=== PATIENT | male | born 1970 | race Asian ===

== ENCOUNTER → 2019-12-30 | Outpatient (CLI) | payer BC ==
[2019-12-30 09:37] LABS: BASOPHILS % 0.7 % (0.0-2.0); EOSINOPHILS % 2.1 % (0.0-5.0); HEMATOCRIT. 44.9 % (42.0-52.0); HEMOGLOBIN. 15.5 g/dL (14.0-18.0); LYMPHOCYTES % 29.1 % (20.0-50.0); MEAN CORPUSCULAR HEMOGLOBIN 30.7 pg (28.0-32.0); MEAN CORPUSCULAR VOLUME 88.9 fL (80.0-94.0); MEAN PLATELET VOLUME 8.1 fl (7.4-10.4); MONOCYTES % 4.1 % (2.0-8.0); PLATELET 199 x1000/uL (130-400); RED BLOOD CELL COUNT 5.06 mill/uL (4.7-6.1)
[2019-12-30 09:43] LABS: CLARITY URINE CLEAR (CLEAR); COLOR URINE YELLOW (YELLOW); KETONES URINE NEGATIVE (NEGATIVE); LEUKOCYTE ESTERASE URINE NEGATIVE (NEGATIVE); NITRITE URINE NEGATIVE (NEGATIVE); OCCULT BLOOD URINE NEGATIVE (NEGATIVE); PROTEIN URINE NEGATIVE (NEGATIVE); SPECIFIC GRAVITY URINE 1.015 (1.005-1.030); UROBILINOGEN URINE 0.2 E.U./dL (0.2-1.0)
[2019-12-30 09:45] LABS: CHLORIDE 105 mEq/L (98-107)
[2019-12-30 09:53] LABS: LDL CHOLESTEROL 98 mg/dL (5-100)
[2019-12-30 09:54] LABS: HDL CHOLESTEROL 46 mg/dL (40-59); T4 FREE 1.06 ng/dL (0.76-1.46)
[2019-12-30 10:15] LABS: VITAMIN B12 SERUM 709 pg/mL (211-911)
[2019-12-30 10:21] LABS: FOLIC ACID (FOLATE) SERUM > 20.00 ng/mL (>5.38)
[2019-12-30 10:50] LABS: PROSTRATE SPECIFIC AG TOTAL 2.64 ng/mL (0.0-4.0)
[2019-12-31 08:12] LABS: THYROID PEROXIDASE ANTIBODY < 9 IU/mL (0-34); VITAMIN D 25-OH 18.3 ng/mL (30.0-100.0)
== END | disposition home or self-care (01) ==
LOC: LAB 08:56
PROVIDERS: ATTEND Family Medicine
DX: Z12.5 Encounter for screening for malignant neoplasm of prostate (principal); I10 Essential (primary) hypertension; Z13.29 Encounter for screening for other suspected endocrine disorder; R53.83 Other fatigue; Z13.220 Encounter for screening for lipoid disorders
CPT/HCPCS: 36415; 80053; 80061; 81003; 82306; 82607; 82746; 83036; 84153; 84439; 84443; 84481; 85025; 86376; G0103

== ENCOUNTER → 2020-06-18 | Outpatient (CLI) | payer BC ==
[2020-06-18 11:51] LABS: BASOPHILS % 1.1 % (0.0-2.0); EOSINOPHILS % 2.3 % (0.0-5.0); HEMATOCRIT. 41.2 % (42.0-52.0); HEMOGLOBIN. 14.3 g/dL (14.0-18.0); LYMPHOCYTES % 32.8 % (20.0-50.0); MEAN CORPUSCULAR HEMOGLOBIN 30.3 pg (28.0-32.0); MEAN CORPUSCULAR VOLUME 87.7 fL (80.0-94.0); MEAN PLATELET VOLUME 8.2 fl (7.4-10.4); MONOCYTES % 5.6 % (2.0-8.0); NEUTROPHILS % 58.2 % (40.0-76.0); PLATELET 204 x1000/uL (130-400); RED CELL DISTRIBUTION WIDTH 13.6 % (11.6-14.6)
[2020-06-18 12:10] LABS: CHLORIDE 108 mEq/L (98-107)
[2020-06-18 12:20] LABS: LDL CHOLESTEROL 102 mg/dL (5-100)
[2020-06-18 12:21] LABS: HDL CHOLESTEROL 44 mg/dL (40-59)
[2020-06-18 12:22] LABS: T4 FREE 1.16 ng/dL (0.76-1.46)
[2020-06-18 12:55] LABS: VITAMIN B12 SERUM 662 pg/mL (211-911)
[2020-06-19 04:07] LABS: THYROID PEROXIDASE ANTIBODY < 9 IU/mL (0-34); VITAMIN D 25-OH 21.3 ng/mL (30.0-100.0)
== END | disposition home or self-care (01) ==
LOC: EDBD → LAB 10:45
PROVIDERS: ATTEND Family Medicine
DX: I10 Essential (primary) hypertension (principal); R53.83 Other fatigue
CPT/HCPCS: 36415; 80053; 80061; 82306; 82607; 83036; 84439; 84443; 84481; 85025; 86376

== ENCOUNTER → 2020-12-17 | Outpatient (CLI) | payer BC ==
[2020-12-17 11:07] LABS: CLARITY URINE CLEAR (CLEAR); COLOR URINE YELLOW (YELLOW); KETONES URINE NEGATIVE (NEGATIVE); LEUKOCYTE ESTERASE URINE NEGATIVE (NEGATIVE); NITRITE URINE NEGATIVE (NEGATIVE); OCCULT BLOOD URINE NEGATIVE (NEGATIVE); PROTEIN URINE NEGATIVE (NEGATIVE); SPECIFIC GRAVITY URINE 1.016 (1.005-1.030); UROBILINOGEN URINE 0.2 E.U./dL (0.2-1.0)
[2020-12-17 11:16] LABS: BASOPHILS % 0.2 % (0.0-2.0); EOSINOPHILS % 5.1 % (0.0-5.0); HEMATOCRIT. 41.5 % (42.0-52.0); HEMOGLOBIN. 14.3 g/dL (14.0-18.0); LYMPHOCYTES % 30.8 % (20.0-50.0); MEAN CORPUSCULAR HEMOGLOBIN 30.1 pg (28.0-32.0); MEAN CORPUSCULAR VOLUME 87.7 fL (80.0-94.0); MEAN PLATELET VOLUME 8.8 fl (7.4-10.4); MONOCYTES % 4.9 % (2.0-8.0); PLATELET 175 x1000/uL (130-400); RED BLOOD CELL COUNT 4.73 mill/uL (4.7-6.1); RED CELL DISTRIBUTION WIDTH 13.1 % (11.6-14.6)
[2020-12-17 12:36] LABS: CHLORIDE 111 mEq/L (98-107)
[2020-12-17 12:51] LABS: HDL CHOLESTEROL 38 mg/dL (40-59)
[2020-12-17 12:59] LABS: T4 FREE 1.01 ng/dL (0.76-1.46)
[2020-12-17 13:00] LABS: LDL CHOLESTEROL 113 mg/dL (5-100)
[2020-12-17 18:42] LABS: VITAMIN B12 SERUM 724 pg/mL (211-911)
[2020-12-18 06:07] LABS: THYROID PEROXIDASE ANTIBODY < 8 IU/mL (0-34); VITAMIN D 25-OH 47.4 ng/mL (30.0-100.0)
== END | disposition home or self-care (01) ==
LOC: LAB 10:20
PROVIDERS: ATTEND Family Medicine
DX: E78.5 Hyperlipidemia, unspecified (principal); R73.03 Prediabetes; E55.9 Vitamin D deficiency, unspecified; M65.321 Trigger finger, right index finger
CPT/HCPCS: 36415; 73140; 80053; 80061; 81003; 82306; 82607; 83036; 84439; 84443; 84481; 85025; 86376

== ENCOUNTER → 2021-04-19 | Outpatient (CLI) | payer BC ==
[2021-04-19 10:36] LABS: CHLORIDE 110 mEq/L (98-107)
[2021-04-19 10:44] LABS: LDL CHOLESTEROL 97 mg/dL (5-100)
[2021-04-19 10:45] LABS: HDL CHOLESTEROL 31 mg/dL (40-59)
== END | disposition home or self-care (01) ==
LOC: LAB 09:25
PROVIDERS: ATTEND Family Medicine
DX: E78.5 Hyperlipidemia, unspecified (principal); R73.03 Prediabetes
CPT/HCPCS: 36415; 80053; 80061; 83036

== ENCOUNTER → 2022-01-13 | Outpatient (CLI) | payer BC ==
[2022-01-13 08:30] LABS: BASOPHILS % 0.2 % (0.0-2.0); EOSINOPHILS % 3.2 % (0.0-5.0); HEMATOCRIT. 42.6 % (42.0-52.0); HEMOGLOBIN. 14.9 g/dL (14.0-18.0); LYMPHOCYTES % 34.3 % (20.0-50.0); MEAN CORPUSCULAR HEMOGLOBIN 30.4 pg (28.0-32.0); MEAN PLATELET VOLUME 8.5 fl (7.4-10.4); MONOCYTES % 5.7 % (2.0-8.0); NEUTROPHILS % 56.6 % (40.0-76.0); PLATELET 183 x1000/uL (130-400); RED BLOOD CELL COUNT 4.89 mill/uL (4.7-6.1); RED CELL DISTRIBUTION WIDTH 13.5 % (11.6-14.6)
[2022-01-13 08:52] LABS: CHLORIDE 106 mEq/L (98-107)
[2022-01-13 09:28] LABS: CLARITY URINE CLEAR (CLEAR); COLOR URINE YELLOW (YELLOW); KETONES URINE TRACE (NEGATIVE); LEUKOCYTE ESTERASE URINE 1+ (NEGATIVE); NITRITE URINE NEGATIVE (NEGATIVE); OCCULT BLOOD URINE NEGATIVE (NEGATIVE); PROTEIN URINE TRACE (NEGATIVE); SPECIFIC GRAVITY URINE 1.024 (1.005-1.030); UROBILINOGEN URINE 0.2 E.U./dL (0.2-1.0)
[2022-01-13 09:47] LABS: HDL CHOLESTEROL 30 mg/dL (40-59); LDL CHOLESTEROL 96 mg/dL (5-100)
== END | disposition home or self-care (01) ==
LOC: LAB 07:52
PROVIDERS: ATTEND Family Medicine
DX: I10 Essential (primary) hypertension (principal); E78.5 Hyperlipidemia, unspecified
CPT/HCPCS: 36415; 80053; 80061; 81003; 83036; 85025